=== PATIENT | male | born 1945 | race Caucasian/White ===

== ENCOUNTER 2021-03-24 09:47 | Observation (INO) ==
[2021-03-24] MEDS ORDERED: PROMETHAZINE 25 MG/ML VIAL IV ONE ×2 (09:51→10:48)
[2021-03-24] MEDS ORDERED: LACTATED RINGERS 1,000 ML IV ONE ×2 (09:51→10:50)
--- NOTE | 2021-03-24 09:52 | Emergency Department Note ---
Nausea/Vomiting/Diarrhea HPI General Chief complaint: Nausea/Vomiting/Diarrhea Stated complaint: nausea, vomiting Time Seen by Provider: 03/24/21 09:50 Source: patient Mode of arrival: ambulatory Limitations: no limitations History of Present Illness HPI Narrative: Narrative: Patient is a 76-year-old male who was seen yesterday for lithotripsy and was sent home with pain medications for the ongoing passage of stones. He had been doing okay last night had taken 2 doses of hydrocodone but then starting at 3 AM had persistent nausea and vomiting. He does not so much describe the pain but the persistent nausea. He had not been given anything for nausea control. He does have stated prior intolerance to hydrocodone but had noted more itchy this as opposed to nausea vomiting. He continues to note some discomfort in the right flank area worse with passing of the stones. He has strained his urine and has had multiple small stones that he presents with today. He has noticed some darkness of the vomit but no sagar blood. He has not had any melena no hematochezia. He feels like he is not urinating quite enough with all of the gravelly stone passage. Denies any fever. No burning with urination but does have some urinary urgency as well as blood in the urine. Rates his level of discomfort is moderate primarily can within nausea as opposed to any the pain. Related Data Home Medications Medication Instructions Recorded Confirmed multivitamin 1 tab PO QDAY 02/10/17 03/24/21 Previous Rx's Medication Instructions Recorded tamsulosin 0.4 mg capsule 0.8 mg PO Q24H #180 cap 02/22/21 ondansetron 4 mg PO Q8H PRN #10 tab 03/25/21 pantoprazole [Protonix] 40 mg PO QDAY #30 tab 03/25/21 Allergies Allergy/AdvReac Type Severity Reaction Status Date / Time hydrocodone AdvReac Intermediate Itching Verified 03/24/21 09:50 Review of Systems ROS ROS Narrative: Narrative: A 10 system review of systems was performed and found to be negative except as outlined above. PFSH Narrative Patient History Narrative: Narrative: Medical/Surgical/Family History All Active Problems (Updated 03/25/21 @ 09:27 by Sid Gay MD) Acute upper gastrointestinal bleeding (Acute) Renal colic on right side (Acute) Intractable nausea and vomiting (Acute) BPH w urinary obs/LUTS (Acute) Prostate cancer (Chronic) Elevated PSA (Chronic) Allergic rhinitis (Chronic) Right bundle branch block (Chronic) History of kidney stones (Chronic ~2012) Blood in urine (Chronic) Benign essential hypertension (Chronic) Knee pain, left (Chronic) Gout (Chronic) Hearing loss (Chronic) Hyperlipidemia (Chronic) Benign prostate hyperplasia (Chronic) Medical History (Updated 03/25/21 @ 09:27 by Sid Gay MD) Allergic rhinitis Benign essential hypertension Benign prostate hyperplasia Blood in urine Elevated PSA Gout Hearing loss History of kidney stones (~2012) Hyperlipidemia Knee pain, left Right bundle branch block Surgical History H/O colonoscopy (11/10/15) History of surgery ankle surgery Status post laser lithotripsy of ureteral calculus Family History Brother Kidney stones Sister Kidney stones Grandfather Lung cancer Social History Smoking Status: Former smoker Alcohol Intake Frequency: 0-2 drinks per day Substance Use: does not use Exam Narrative Narrative: Narrative: General: Alert, Nontoxic, holding an emesis bag. Speaking full sentences without dyspnea HEENT: NCAT, PERRL, Oral pharynx with moist mucus membranes. No pharyngeal erythema. No conjunctival pallor Neck: Supple, No lymphadenopathy Chest: Stable Heart: Regular rate and rhythm without murmur Lungs: Clear to auscultation bilaterally Abdomen: Soft, nondistended, nontender : No bladder distention Back: Nontraumatic, right CVA tenderness to palpation. Skin: No rash or lesion Extremity: No cyanosis or edema, pulses 2+ radial Neurologic: Moves all extremities in appropriate coordinated fashion. General Limitations: no limitations Course Vital Signs Vital signs: Vital Signs Temperature 97.3 F 03/24/21 09:48 Pulse Rate 99 H 03/24/21 09:48 Respiratory Rate 16 03/24/21 09:48 Blood Pressure 145/91 03/24/21 09:48 Pulse Oximetry (%) 99 03/24/21 09:48 Temperature 97.4 F 03/25/21 07:22 Pulse Rate 60 03/25/21 07:22 Respiratory Rate 20 03/25/21 07:22 Blood Pressure 92/58 03/25/21 07:22 Pulse Oximetry (%) 91 03/25/21 07:22 MDM MDM Narrative Medical decision making narrative: Narrative: Patient is likely with emesis related to the passage of multiple small kidney stones. Alternatively he could also be having side effects from the hydrocodone that he was taking to address the pain control. We will give further IV fluid hydration as well as Phenergan and Zofran for nausea relief and reevaluate. Patient was treated with multiple doses of Phenergan and Zofran but continued to have retching. He has been complaint of epigastric pain. He was treated with further pain medications for this and ultimately had notation of coffee-ground emesis. Patient has been with prior treatment with ibuprofen with his kidney stone pain and certainly could have caused ulcer. Given his uncontrolled nausea vomiting as well as the patient's advanced age as well as his evidence of upper GI bleed I do not feel that he is appropriate for outpatient discharge. I have consulted hospitalist service as well as gastroenterology and patient will be admitted for further stabilization as well as likely upper endoscopy to determ ine degree of bleeding. Lab Data Result diagrams: 03/25/21 05:25 03/25/21 05:25 Labs: Lab Results 03/24/21 03/24/21 03/24/21 Range/Units 10:06 10:06 10:06 WBC 15.9 H (4.5-11.0) K/mcL RBC 5.17 (4.50-5.90) M/mcL Hgb 16.1 (13.5-16.5) g/dL Hct 47.2 (41.0-55.0) % MCV 91.3 (80.0-100.0) fL MCH 31.1 (26.0-34.0) pg MCHC 34.1 (31.0-36.0) g/dL RDW 12.5 (11.5-14.5) % Plt Count 206 (140-440) K/mcL MPV 10.0 (7.4-10.4) fL Neut % (Auto) 77.1 (38.0-78.0) % Lymph % (Auto) 15.0 (15.0-49.0) % [place] % (Auto) 7.7 (1.0-12.0) % Eos % (Auto) 0.1 (0.0-7.0) % Baso % (Auto) 0.1 (0.0-2.0) % Lymph # (Auto) 2.39 (1.50-4.80) K/mcL [place] # (Auto) 1.22 H (0.10-0.90) K/mcL Eos # (Auto) 0.02 (0.00-0.70) K/mcL Baso # (Auto) 0.01 (0.00-0.20) K/mcL Absolute Neutrophils 12.27 H (1.80-8.00) K/mcL POC PT (11.9-14.5) sec POC INR (0.8-1.2) APTT 27.2 (20.0-37.0) sec Sodium 137 (133-145) mmol/L Potassium 4.3 (3.3-5.1) mmol/L Chloride 102 (96-108) mmol/L Carbon Dioxide 27 (22-30) mmol/L Anion Gap 8.0 (8.0-16.0) BUN 21 (8-23) mg/dL Creatinine 0.8 (0.7-1.2) mg/dL GFR Calculation 88 Glucose 116 H (70-105) mg/dL Calcium 10.3 (8.6-10.4) mg/dL Total Bilirubin 0.3 (0.1-1.0) mg/dL AST 17 (<40) U/L ALT 17 (<40) U/L Alkaline Phosphatase 79 (39-117) U/L Total Protein 7.1 (5.9-8.4) gm/dL Albumin 4.5 (3.2-5.2) gm/dL Globulin 2.6 (2.2-3.7) gm/dL Albumin/Globulin Ratio 1.7 (1.0-2.3) Lipase 48 (7-60) U/L Urine Color Urine Appearance (Clear) Urine pH (5.0-9.0) Ur Specific [place] (1.000-1.035) Urine Protein (Negative) mg/dL Urine Glucose (UA) (Negative) mg/dL Urine Ketones (Negative) mg/dL Urine Occult Blood (Negative) mg/dL Urine Nitrate (Negative) Urine Bilirubin (Negative) mg/dL Urine Urobilinogen mg/dL Ur Leukocyte Esterase (Negative) /ug Urine RBC (0-3) /hpf Urine WBC (0-4) /hpf Ur Squamous Epith Cells (0-4) /hpf Urine Bacteria (0) /hpf Urine Mucus (None) /hpf Ur Culture Indicated? 03/24/21 03/24/21 Range/Units 11:15 14:44 WBC (4.5-11.0) K/mcL RBC (4.50-5.90) M/mcL Hgb (13.5-16.5) g/dL Hct (41.0-55.0) % MCV (80.0-100.0) fL MCH (26.0-34.0) pg MCHC (31.0-36.0) g/dL RDW (11.5-14.5) % Plt Count (140-440) K/mcL MPV (7.4-10.4) fL Neut % (Auto) (38.0-78.0) % Lymph % (Auto) (15.0-49.0) % Sharp % (Auto) (1.0-12.0) % Eos % (Auto) (0.0-7.0) % Baso % (Auto) (0.0-2.0) % Lymph # (Auto) (1.50-4.80) K/mcL [place] # (Auto) (0.10-0.90) K/mcL Eos # (Auto) (0.00-0.70) K/mcL Baso # (Auto) (0.00-0.20) K/mcL Absolute Neutrophils (1.80-8.00) K/mcL POC PT 12.0 (11.9-14.5) sec POC INR 1.0 (0.8-1.2) APTT (20.0-37.0) sec Sodium (133-145) mmol/L Potassium (3.3-5.1) mmol/L Chloride (96-108) mmol/L Carbon Dioxide (22-30) mmol/L Anion Gap (8.0-16.0) BUN (8-23) mg/dL Creatinine (0.7-1.2) mg/dL GFR Calculation Glucose (70-105) mg/dL Calcium (8.6-10.4) mg/dL Total Bilirubin (0.1-1.0) mg/dL AST (<40) U/L ALT (<40) U/L Alkaline Phosphatase (39-117) U/L Total Protein (5.9-8.4) gm/dL Albumin (3.2-5.2) gm/dL Globulin (2.2-3.7) gm/dL Albumin/Globulin Ratio (1.0-2.3) Lipase (7-60) U/L Urine Color Straw Urine Appearance Clear (Clear) Urine pH 7.0 (5.0-9.0) Ur Specific [place] 1.005 (1.000-1.035) Urine Protein Negative (Negative) mg/dL Urine Glucose (UA) Negative (Negative) mg/dL Urine Ketones Negative (Negative) mg/dL Urine Occult Blood >=1.0 A (Negative) mg/dL Urine Nitrate Negative (Negative) Urine Bilirubin Negative (Negative) mg/dL Urine Urobilinogen Negative mg/dL Ur Leukocyte Esterase 25 A (Negative) /ug Urine RBC 7 H (0-3) /hpf Urine WBC 6 H (0-4) /hpf Ur Squamous Epith Cells 0 (0-4) /hpf Urine Bacteria Few A (0) /hpf Urine Mucus Few A (None) /hpf Ur Culture Indicated? Yes ED POC Tests ED POC Tests: [facility] - SARS Antigen Negative Discharge Plan Patient/Caregiver Discharge Instructions Pt seen by COST MANAGER/PA only: No Clinical Impression: Acute upper gastrointestinal bleeding, Renal colic on right side, Intractable nausea and vomiting Activity: increase activity as tolerated Patient Disposition: Xfer As Outpt/Obs ([facility]) Condition: Fair Discharge Date/Time: 03/24/21 15:17 Discharge Location: [facility]
[2021-03-24 10:35] LABS: Basophils # (Auto) 0.01 K/mcL (0.00-0.20); Basophils % (Auto) 0.1 % (0.0-2.0); Eosinophils # (Auto) 0.02 K/mcL (0.00-0.70); Eosinophils % (Auto) 0.1 % (0.0-7.0); Hematocrit 47.2 % (41.0-55.0); Hemoglobin 16.1 g/dL (13.5-16.5); Lymphocytes # (Auto) 2.39 K/mcL (1.50-4.80); Mean Cell Volume 91.3 fL (80.0-100.0); Mean Corpuscular HGB Conc 34.1 g/dL (31.0-36.0); Monocytes # (Auto) 1.22 K/mcL (0.10-0.90); Monocytes % (Auto) 7.7 % (1.0-12.0); Neutrophils % (Auto) 77.1 % (38.0-78.0); Platelet Count 206 K/mcL (140-440); RBC 5.17 M/mcL (4.50-5.90); Red Cell Distribution Width 12.5 % (11.5-14.5); WBC 15.9 K/mcL (4.5-11.0)
[2021-03-24 10:52] LABS: ALT/SGPT 17 U/L (<40); AST/SGOT 17 U/L (<40); Albumin 4.5 gm/dL (3.2-5.2); Albumin/Globulin Ratio 1.7 (1.0-2.3); Alkaline Phosphatase 79 U/L (39-117); Bilirubin,Total 0.3 mg/dL (0.1-1.0); Blood Urea Nitrogen 21 mg/dL (8-23); Calcium 10.3 mg/dL (8.6-10.4); Carbon Dioxide 27 mmol/L (22-30); Chloride 102 mmol/L (96-108); Globulin 2.6 gm/dL (2.2-3.7); Glomerular Filtration Rate 88; Glucose 116 mg/dL (70-105)
[2021-03-24] MEDS: ONDANSETRON 4 MG/2 ML VIAL IV PRN ×2 (10:58→13:05)
[2021-03-24 12:18] LABS: Appearance,Urine CLEAR (Clear); Bacteria,Urine FEW /hpf (0); Bilirubin,Urine Negative (Negative); Color,Urine STRAW; Culture Indicated,Urine Yes; Glucose,Urine (UA) Negative (Negative); Ketones,Urine Negative (Negative); Leukocyte Esterase,Urine 25 /ug (Negative); Mucus,Urine FEW /hpf; Nitrate,Urine Negative (Negative); Protein,Urine Negative (Negative); Specific Gravity,Urine 1.005 (1.000-1.035); Urine Blood >=1.0 mg/dL (Negative); Urine RBC 7 /hpf (0-3); Urine Squamous Epithelial Cell 0 /hpf (0-4); Urine WBC 6 /hpf (0-4); Urobilinogen,Urine Negative
[2021-03-24] MEDS: HYDROmorphone 0.5 MG/0.5 ML SYRINGE IV PRN ×4 (13:06→15:05)
[2021-03-24] MEDS ORDERED: PANTOPRAZOLE 40 MG VIAL IV ONE ×2 (14:25→14:35)
[2021-03-24] MEDS ORDERED: diphenhydrAMINE 50 MG/ML VIAL IV ONE ×2 (14:45→14:56)
--- NOTE | 2021-03-24 14:49 | Internal Med History&Physical ---
HPI History of Present Illness Patient information: Note initiated : 03/24/21 at 2:43 pm Service Date, if different from initiated Date: [] Patient: Isabella Capps a 76 y/o M admitted on for nausea, vomiting. Chief Complaint: [] History of present illness: Mr. Capps is a 76 year old M Patient presents the ED with nausea vomiting and dark emesis. Patient lithotripsy yesterday went home and took a hydrocodone which she does have listed as an allergy but he states it typically just makes him itchy. Started developing nausea vomiting about 3:00am it started turning dark bloody color. Had a lot of nausea and vomiting since. No reported NSAIDs or aspirin. No chest pain or shortness of breath. Does complain of epigastric pain. Denies diarrhea Case was discussed with Dr. Harris who performed EGD later. Review of Systems: Pertinent positives as above. Denies headache/fever/chills/chest pain/cough/dyspnea/diarrhea. Remaining 10 point review of system reviewed negative PFSH PFSH All Active Problems BPH w urinary obs/LUTS (Acute) Prostate cancer (Chronic) Elevated PSA (Chronic) Allergic rhinitis (Chronic) Right bundle branch block (Chronic) History of kidney stones (Chronic ~2012) Blood in urine (Chronic) Benign essential hypertension (Chronic) Knee pain, left (Chronic) Gout (Chronic) Hearing loss (Chronic) Hyperlipidemia (Chronic) Benign prostate hyperplasia (Chronic) Medical History Allergic rhinitis Benign essential hypertension Benign prostate hyperplasia Blood in urine Elevated PSA Gout Hearing loss History of kidney stones (~2012) Hyperlipidemia Knee pain, left Right bundle branch block Surgical History H/O colonoscopy (11/10/15) History of surgery ankle surgery Status post laser lithotripsy of ureteral calculus Family History Brother Kidney stones Sister Kidney stones Grandfather Lung cancer Social History alcohol intake frequency: 0-2 drinks per day substance use type: does not use MEDS/ALLERGIES Home Medications and Allergies Home Medications Medication Instructions Recorded Confirmed Type multivitamin 1 tab PO QDAY 02/10/17 03/24/21 History tamsulosin 0.4 mg capsule 0.8 mg PO Q24H #180 cap 02/22/21 03/24/21 Rx Allergies Allergy/AdvReac Type Severity Reaction Status Date / Time hydrocodone AdvReac Intermediate Itching Verified 03/24/21 09:50 EXAM Constitutional Vitals: Temp Pulse Resp BP Pulse Ox 99.5 F H 93 H 9 L 109/87 93 03/24/21 12:37 03/24/21 14:12 03/24/21 14:12 03/24/21 14:12 03/24/21 14:12 Exam: General: Alert, Awake, mild distress vomiting Eyes/N/T: EOMI, PERRL, Head/Neck: neck supple, normocephalic atraumatic CV: RRR, No murmurs, normal s1/s2 Pulm: Clear b/l, no wheezing/rhonchi/rales Abd: soft, epigastric TTP , +BS x4 Ext: no clubbing/cyanosis/edema Neuro: Alert, no focal deficits, moves all extremities, CN 2-12 grossly intact, symmetrical strength b/l upper/lower, sensations intact b/l upper/lower Skin: warm/dry DATA Data Completed and Pending Labs: Labs from last 24 hours 03/24/21 03/24/21 03/24/21 11:15 10:06 10:06 WBC 15.9 H RBC 5.17 Hgb 16.1 Hct 47.2 MCV 91.3 MCH 31.1 MCHC 34.1 RDW 12.5 Plt Count 206 MPV 10.0 Neut % (Auto) 77.1 Lymph % (Auto) 15.0 [place] % (Auto) 7.7 Eos % (Auto) 0.1 Baso % (Auto) 0.1 Lymph # (Auto) 2.39 [place] # (Auto) 1.22 H Eos # (Auto) 0.02 Baso # (Auto) 0.01 Absolute Neutrophils 12.27 H Sodium 137 Potassium 4.3 Chloride 102 Carbon Dioxide 27 Anion Gap 8.0 BUN 21 Creatinine 0.8 GFR Calculation 88 Glucose 116 H Calcium 10.3 Total Bilirubin 0.3 AST 17 ALT 17 Alkaline Phosphatase 79 Total Protein 7.1 Albumin 4.5 Globulin 2.6 Albumin/Globulin Ratio 1.7 Lipase 48 Urine Color Straw Urine Appearance Clear Urine pH 7.0 Ur Specific [place] 1.005 Urine Protein Negative Urine Glucose (UA) Negative Urine Ketones Negative Urine Occult Blood >=1.0 A Urine Nitrate Negative Urine Bilirubin Negative Urine Urobilinogen Negative Ur Leukocyte Esterase 25 A Urine RBC 7 H Urine WBC 6 H Ur Squamous Epith Cells 0 Urine Bacteria Few A Urine Mucus Few A Ur Culture Indicated? Yes A/P Narrative A/P Narrative: A: *GI bleed, upper: -H&H wnl at this time *h/o nephrolithiasis s/p lithotripsy (03/23) *BPH: * P: -protonix gtt -Dr. Alston for endoscopy -monitor H&H -Antiemetics - -ppx: scd full code Time Spent With Patient Time: Total time spent is greater than 50% in coordination of care (as documented) at patient's floor/unit and/or counseling patient:
[2021-03-24] MEDS ORDERED: KETAMINE 50 MG/ML ML IV PRN (14:52)
[2021-03-24] MEDS ORDERED: PROPOFOL 200 MG/20 ML VIAL IV SCH (15:00)
[2021-03-24] MEDS ORDERED: PANTOPRAZOLE 80 MG in 0.9 % SODIUM CHLORIDE 100 ML IV SCH (15:00)
[2021-03-24] MEDS ORDERED: MIDAZOLAM 2 MG/2 ML VIAL IV SCH (15:00)
[2021-03-24] MEDS ORDERED: ACETAMINOPHEN 650 MG/65 ML BAG IV PRN (16:14)
[2021-03-24] MEDS ORDERED: MAGNESIUM SULFATE 2 GM/50 ML BAG IV PRN (16:14)
[2021-03-24] MEDS ORDERED: ONDANSETRON 4 MG/2 ML VIAL IV PRN (16:14)
[2021-03-24] MEDS ORDERED: SENNOSIDES 1 TABLET PO PRN (16:14)
[2021-03-24] MEDS ORDERED: IPRATROPIUM/ALBUTEROL 3 ML AMPUL.NEB NEB PRN (16:14)
[2021-03-24] MEDS ORDERED: POTASSIUM CHLORIDE 40 MEQ in DEXTROSE 5% IN WATER 500 ML IV PRN (16:14)
[2021-03-24] MEDS ORDERED: diphenhydrAMINE 50 MG/ML VIAL IV PRN (16:14)
[2021-03-24] MEDS ORDERED: TAMSULOSIN 0.4 MG CAPSULE PO SCH (16:14)
[2021-03-24] MEDS ORDERED: METOCLOPRAMIDE 10 MG/2 ML VIAL IV PRN (16:14)
[2021-03-24] MEDS ORDERED: POLYETHYLENE GLYCOL 3350 17 GM PACKET PO PRN (16:14)
[2021-03-24] MEDS ORDERED: POTASSIUM CHLORIDE 20 MEQ TABLET PO PRN ×2 (16:14)
[2021-03-24] MEDS ORDERED: PROCHLORPERAZINE 10 MG/2 ML VIAL IV PRN (16:14)
[2021-03-24] MEDS ORDERED: traMADol 50 MG TABLET PO PRN (16:14)
[2021-03-24 18:57] LABS: Hematocrit 41.7 % (41.0-55.0); Hemoglobin 14.2 g/dL (13.5-16.5)
[2021-03-24] MEDS: 0.9 % SODIUM CHLORIDE 10 ML SYRINGE IV SCH (20:49)
[2021-03-24] MEDS: DOCUSATE SODIUM 100 MG CAPSULE PO SCH (21:04)
[2021-03-25] MEDS: 0.9 % SODIUM CHLORIDE 10 ML SYRINGE IV SCH (05:33)
--- NOTE | 2021-03-25 07:32 | Internal Med Progress Note ---
SUBJECTIVE Subjective Patient information: Note initiated : 03/25/21 at 7:31 am Service Date, if different from initiated Date: [] Patient: Isabella Capps a 76 y/o M admitted on 03/24/21 for nausea, vomiting. Chief Complaint: [] Interval history: History of present illness: Mr. Capps is a 76 year old M Patient presents the ED with nausea vomiting and dark emesis. Patient lithotripsy yesterday went home and took a hydrocodone which she does have listed as an allergy but he states it typically just makes him itchy. Started developing nausea vomiting about 3:00am it started turning dark bloody color. Had a lot of nausea and vomiting since. No reported NSAIDs or aspirin. No chest pain or shortness of breath. Does complain of epigastric pain. Denies diarrhea Case was discussed with Dr. Harris who performed EGD later. 03/25 Slept okay. No further emesis. Little bit of nausea but much better. Review of Systems: denies headache/fever/chills/vomiting/chest or abdominal pain/cough/dyspnea/diarrhea. Otherwise see above. Constitutional Vitals: Vital Signs Temp Pulse Resp BP Pulse Ox 97.4 F 60 20 92/58 91 03/25/21 07:22 03/25/21 07:22 03/25/21 07:22 03/25/21 07:22 03/25/21 07:22 Period Temp Pulse Resp BP Sys/Sherman Pulse Ox Last 24 Hr 97.3 F-99.5 F 60-132 9-27 92-190/48-110 89-99 Intake and Output 03/24/21 03/25/21 03/25/21 21:59 05:59 13:59 Intake Total 545 890 Output Total 375 Balance 170 890 Weight 87.952 kg Intake & Output: Intake & Output 03/24/21 03/25/21 03/25/21 21:59 05:59 13:59 Intake Total 545 890 Output Total 375 Balance 170 890 Weight 87.952 kg Intake: IV 65 100 Protonix 80 mg In Sodium 100 Chloride 0.9% 100 ml @ 8 MG/HR 10 mls/hr IV Q10H [facility] Rx#: [id number] Oral 480 790 Output: Void Amount 375 Other: Meal Dinner Percent of Meal Consumed 100% Feeding Ability Independent Urine Appearance Clear Clear Urine Color Dark Yellow Dark Yellow # Voids 400 Exam: General: Alert, Awake, mild distress vomiting Eyes/N/T: EOMI, Head/Neck: neck supple, CV: RRR, No murmurs, Pulm: Clear b/l, no wheezing/rhonchi/rales Abd: soft, epigastric TTP , +BS x4 Ext: no clubbing/cyanosis/edema Neuro: Alert, no focal deficits, moves all extremities, Skin: warm/dry OBJ DATA Labs CBC & Chem 7: 03/25/21 05:25 03/25/21 05:25 Labs: Abnormal Lab Results 03/24/21 03/24/21 03/24/21 11:15 10:06 10:06 WBC 15.9 H [place] # (Auto) 1.22 H Absolute Neutrophils 12.27 H Glucose 116 H Urine Occult Blood >=1.0 A Ur Leukocyte Esterase 25 A Urine RBC 7 H Urine WBC 6 H Urine Bacteria Few A Urine Mucus Few A Meds: Medications Albuterol/Ipratropium (Ipratropium/Albuterol 3 Ml Ampul.Neb) 3 ml NEB Q4HP PRN PRN Reason: Shortness Of Breath Diphenhydramine HCl (Diphenhydramine 50 Mg/Ml Vial) 25 mg IV Q4-6HP PRN PRN Reason: nausea Docusate Sodium (Docusate Sodium 100 Mg Capsule) 100 mg PO BID [place] Last Admin: 03/24/21 21:04 Dose: Not Given Documented by: Potassium Chloride 40 meq/ (Dextrose) 520 mls @ 130 mls/hr IV UD PRN PRN Reason: Potassium < 3 Magnesium Sulfate (Magnesium Sulfate) 2 gm in 50 mls @ 50 mls/hr IV UD PRN PRN Reason: Magnesium </= 1.6 Acetaminophen (Ofirmev) 650 mg in 65 mls @ 130 mls/hr IV Q6HP PRN; Protocol PRN Reason: PAIN/FEVER > 101 Last Infusion: 03/24/21 21:45 Dose: Infused Documented by: Metoclopramide HCl (Metoclopramide 10 Mg/2 Ml Vial) 10 mg IV Q6HP PRN PRN Reason: Nausea And Vomiting Ondansetron HCl (Ondansetron 4 Mg/2 Ml Vial) 4 mg IV Q4HP PRN PRN Reason: Nausea And Vomiting Last Admin: 03/24/21 21:15 Dose: 4 mg Documented by: Polyethylene Glycol (Polyethylene Glycol 3350 17 Gm Packet) 17 gm PO DAILYP PRN PRN Reason: Constipation Potassium Chloride (Potassium Chloride 20 Meq Tablet) 40 meq PO UD PRN PRN Reason: Potssium is 3-3.5 Potassium Chloride (Potassium Chloride 20 Meq Tablet) 40 meq PO UD PRN PRN Reason: Potassium < 3 Prochlorperazine (Prochlorperazine 10 Mg/2 Ml Vial) 10 mg IV Q6HP PRN PRN Reason: Nausea And Vomiting Senna (Sennosides 1 Tablet) 2 tab PO DAILYP PRN PRN Reason: Constipation Sodium Chloride (0.9 % Sodium Chloride 10 Ml Syringe) 10 ml IV Q8 [place] Last Admin: 03/25/21 05:33 Dose: 10 ml Documented by: Tamsulosin HCl (Tamsulosin 0.4 Mg Capsule) 0.8 mg PO Q24H [facility] Last Admin: 03/24/21 18:17 Dose: 0.8 mg Documented by: Tramadol HCl (Tramadol 50 Mg Tablet) 50 mg PO Q4-6HP PRN; Protocol PRN Reason: Pain Last Admin: 03/24/21 18:42 Dose: 50 mg Documented by: A/P Narrative A/P Narrative: A: *GI bleed, upper: suspect PUD *h/o nephrolithiasis s/p lithotripsy (03/23) *BPH: * P: -protonix gtt -Dr. Alston for endoscopy -monitor H&H -Antiemetics - -ppx: scd full code Time Spent With Patient Time: Total time spent is greater than 50% in coordination of care (as documented) at patient's floor/unit and/or counseling patient: QUALITY VTE Deep Vein Thrombosis/Pulmonary Embolism Present on Admission: No
[2021-03-25 07:48] LABS: Basophils # (Auto) 0.03 K/mcL (0.00-0.20); Basophils % (Auto) 0.2 % (0.0-2.0); Eosinophils # (Auto) 0.12 K/mcL (0.00-0.70); Eosinophils % (Auto) 0.9 % (0.0-7.0); Lymphocytes # (Auto) 3.17 K/mcL (1.50-4.80); Lymphocytes % (Auto) 24.8 % (15.0-49.0); Mean Cell Volume 93.9 fL (80.0-100.0); Mean Corpuscular HGB Conc 32.5 g/dL (31.0-36.0); Mean Platelet Volume 10.4 fL (7.4-10.4); Monocytes # (Auto) 1.13 K/mcL (0.10-0.90); Monocytes % (Auto) 8.9 % (1.0-12.0); Neutrophils % (Auto) 65.2 % (38.0-78.0); Platelet Count 163 K/mcL (140-440); RBC 4.26 M/mcL (4.50-5.90); Red Cell Distribution Width 13.4 % (11.5-14.5); WBC 12.8 K/mcL (4.5-11.0)
[2021-03-25 08:07] LABS: ALT/SGPT 10 U/L (<40); AST/SGOT 12 U/L (<40); Albumin 3.5 gm/dL (3.2-5.2); Albumin/Globulin Ratio 1.8 (1.0-2.3); Alkaline Phosphatase 58 U/L (39-117); Bilirubin,Direct < 0.2 mg/dL (0-0.3); Bilirubin,Total 0.5 mg/dL (0.1-1.0); Blood Urea Nitrogen 24 mg/dL (8-23); Calcium 8.7 mg/dL (8.6-10.4); Carbon Dioxide 26 mmol/L (22-30); Chloride 103 mmol/L (96-108); Glomerular Filtration Rate 74; Glucose 85 mg/dL (70-105); Lactate Dehydrogenase 182 U/L (135-225); Phosphorous 3.3 mg/dL (2.5-4.5); Triglycerides 170 mg/dL (<150); Uric Acid 6.4 mg/dL (2.5-8.0)
[2021-03-25] MEDS: DOCUSATE SODIUM 100 MG CAPSULE PO SCH (08:18)
--- NOTE | 2021-03-25 10:11 | EGD Procedure Note ---
EGD Procedure Notes Procedure Information Patient information: Note initiated : 03/25/21 at 10:09 am Service Date: 03/24/21 Patient: Isabella Capps 76 y/o M admitted on 03/24/21 for nausea, vomiting. Pre-op diagnosis general: Hematemesis. Post-Op Diagnosis general: Severe ulcerative hemorrhagic esophagitis. Procedure: egd Procedure Narrative: The procedure, alternatives and risks were discussed with the patient and the patient's questions were answered. With endoscopist-administered intravenous sedation, the Olympus video endoscope was introduced into the esophagus. The esophagus, stomach, and duodenum were examined sequentially. Severe ulcerative hemorrhagic esophagitis was seen. There was a small hiatal hernia. The gastric mucosa, antrum, pyloric ring and duodenum were otherwise normal. Assessment: Severe ulcerative hemorrhagic esophagitis. Start high dose PPI. No NSAIDs should be used. No cause of abdominal pain seen.
--- NOTE | 2021-03-25 10:24 | Discharge Summary ---
Discharge Provider Provider Patient information: Note initiated : 03/25/21 at 10:21 am Service Date, if different from initiated Date: [] Patient: Isabella Capps a 76 y/o M admitted on 03/24/21 for nausea, vomiting. Chief Complaint: [] Date of admission: 03/24/21 15:55 Discharge date: 03/25/21 Primary care physician: Hardy Marino MD Consults: 03/24/21 Consult to Physician [CONS] Stat Comment: Consulting Provider: Prudencio Avalos Reason For Exam: Physician to Consult Consult to Physician [CONS] Stat Comment: Consulting Provider: Romero Alston Reason For Exam: Physician to Consult Discharge Meds Discharge Medications Home Medications multivitamin 1 tab PO QDAY 02/10/17 [History Confirmed 03/24/21 Last Taken Unknown] tamsulosin 0.4 mg capsule 0.8 mg PO Q24H #180 cap 02/22/21 [Rx Confirmed 03/24/21 Last Taken Unknown] ondansetron 4 mg PO Q8H PRN #10 tab 03/25/21 [Rx Last Taken Unknown] pantoprazole 40 mg PO BID #90 tab 03/25/21 [Rx Last Taken Unknown] COURSE Hospital Course Hospital course: Interval history: History of present illness: Mr. Capps is a 76 year old M Patient presents the ED with nausea vomiting and dark emesis. Patient lithotripsy yesterday went home and took a hydrocodone which she does have listed as an allergy but he states it typically just makes him itchy. Started developing nausea vomiting about 3:00am it started turning dark bloody color. Had a lot of nausea and vomiting since. No reported NSAIDs or aspirin. No chest pain or shortness of breath. Does complain of epigastric pain. Denies diarrhea Case was discussed with Dr. Harris who performed EGD later. 03/25 Slept okay. No further emesis. Little bit of nausea but much better. EGD showing severe ulcerative hemorrhagic esophagitis was seen. There was a small hiatal hernia. The gastric mucosa, antrum, pyloric ring and duodenum were otherwise normal. Discharge diagnosis: Ulcerative esophagitis. Secondary discharge diagnosis: BPH history of nephrolithiasis Time Spent with Patient Time attestation: Total time spent providing and/or coordinating discharge services: Time spent: Greater than 30 minutes EXAM Constitutional Vitals: Temp Pulse Resp BP Pulse Ox 97.4 F 60 20 92/58 91 03/25/21 07:22 03/25/21 07:22 03/25/21 07:22 03/25/21 07:22 03/25/21 07:22 Discharge Data Data Completed and Pending Labs on day of discharge: Labs from last 24 hours 03/25/21 03/25/21 03/24/21 05:25 05:25 18:31 WBC 12.8 H RBC 4.26 L Hgb 13.0 L 14.2 Hct 40.0 L 41.7 MCV 93.9 MCH 30.5 MCHC 32.5 RDW 13.4 Plt Count 163 MPV 10.4 Neut % (Auto) 65.2 Lymph % (Auto) 24.8 [place] % (Auto) 8.9 Eos % (Auto) 0.9 Baso % (Auto) 0.2 Lymph # (Auto) 3.17 [place] # (Auto) 1.13 H Eos # (Auto) 0.12 Baso # (Auto) 0.03 Absolute Neutrophils 8.31 H POC PT POC INR APTT Sodium 138 Potassium 4.2 Chloride 103 Carbon Dioxide 26 Anion Gap 9.0 BUN 24 H Creatinine 1.0 GFR Calculation 74 Glucose 85 Uric Acid 6.4 Calcium 8.7 Phosphorus 3.3 Magnesium 1.8 Total Bilirubin 0.5 Direct Bilirubin < 0.2 GGT 18 AST 12 ALT 10 Alkaline Phosphatase 58 Lactate Dehydrogenase 182 Total Protein 5.5 L Albumin 3.5 Globulin 2.0 L Albumin/Globulin Ratio 1.8 Triglycerides 170 H Lipase Urine Color Urine Appearance Urine pH Ur Specific [place] Urine Protein Urine Glucose (UA) Urine Ketones Urine Occult Blood Urine Nitrate Urine Bilirubin Urine Urobilinogen Ur Leukocyte Esterase Urine RBC Urine WBC Ur Squamous Epith Cells Urine Bacteria Urine Mucus Ur Culture Indicated? 03/24/21 03/24/21 03/24/21 14:44 11:15 10:06 WBC RBC Hgb Hct MCV MCH MCHC RDW Plt Count MPV Neut % (Auto) Lymph % (Auto) [place] % (Auto) Eos % (Auto) Baso % (Auto) Lymph # (Auto) [place] # (Auto) Eos # (Auto) Baso # (Auto) Absolute Neutrophils POC PT 12.0 POC INR 1.0 APTT 27.2 Sodium Potassium Chloride Carbon Dioxide Anion Gap BUN Creatinine GFR Calculation Glucose Uric Acid Calcium Phosphorus Magnesium Total Bilirubin Direct Bilirubin GGT AST ALT Alkaline Phosphatase Lactate Dehydrogenase Total Protein Albumin Globulin Albumin/Globulin Ratio Triglycerides Lipase Urine Color Straw Urine Appearance Clear Urine pH 7.0 Ur Specific [place] 1.005 Urine Protein Negative Urine Glucose (UA) Negative Urine Ketones Negative Urine Occult Blood >=1.0 A Urine Nitrate Negative Urine Bilirubin Negative Urine Urobilinogen Negative Ur Leukocyte Esterase 25 A Urine RBC 7 H Urine WBC 6 H Ur Squamous Epith Cells 0 Urine Bacteria Few A Urine Mucus Few A Ur Culture Indicated? Yes 03/24/21 03/24/21 10:06 10:06 WBC 15.9 H RBC 5.17 Hgb 16.1 Hct 47.2 MCV 91.3 MCH 31.1 MCHC 34.1 RDW 12.5 Plt Count 206 MPV 10.0 Neut % (Auto) 77.1 Lymph % (Auto) 15.0 [place] % (Auto) 7.7 Eos % (Auto) 0.1 Baso % (Auto) 0.1 Lymph # (Auto) 2.39 [place] # (Auto) 1.22 H Eos # (Auto) 0.02 Baso # (Auto) 0.01 Absolute Neutrophils 12.27 H POC PT POC INR APTT Sodium 137 Potassium 4.3 Chloride 102 Carbon Dioxide 27 Anion Gap 8.0 BUN 21 Creatinine 0.8 GFR Calculation 88 Glucose 116 H Uric Acid Calcium 10.3 Phosphorus Magnesium Total Bilirubin 0.3 Direct Bilirubin GGT AST 17 ALT 17 Alkaline Phosphatase 79 Lactate Dehydrogenase Total Protein 7.1 Albumin 4.5 Globulin 2.6 Albumin/Globulin Ratio 1.7 Triglycerides Lipase 48 Urine Color Urine Appearance Urine pH Ur Specific [place] Urine Protein Urine Glucose (UA) Urine Ketones Urine Occult Blood Urine Nitrate Urine Bilirubin Urine Urobilinogen Ur Leukocyte Esterase Urine RBC Urine WBC Ur Squamous Epith Cells Urine Bacteria Urine Mucus Ur Culture Indicated? Discharge Plan Patient/Caregiver Discharge Instructions Activity: increase activity as tolerated Diet: Regular Diet Prescriptions: New ondansetron 4 mg tablet,disintegrating 4 mg PO Q8H PRN (Reason: nausea and vomiting) Qty: 10 RF: 0 pantoprazole 40 mg tablet,delayed release (DR/EC) 40 mg PO BID Qty: 90 RF: 0 Continued tamsulosin [Flomax] 0.4 mg capsule 0.8 mg PO Q24H Qty: 180 RF: 5 multivitamin 1 tab PO QDAY RF: 0 Follow Up Plan Follow up with: Romero Alston MD [Physician] - Hardy Marino MD [Primary Care Provider] - Patient Disposition: Home, Self-Care Prognosis: Fair Overall status at discharge: patient is progressing back to baseline Discharge Orders: Discharge Order (Routine); Ordered 03/25/21 Ordered By: Prudencio Avalos [facility] Deep Vein Thrombosis/Pulmonary Embolism Present on Admission: No
--- NOTE | 2021-03-30 10:50 | EKG ---
[facility] Test Date: 2021-03-24 Pat Name: Isabella Capps Department: MED[facility] Room: 130 Gender: Male Automatic Developer: sb : 1945 Requested By: Sid Gay Order Number: [id number] Reading MD: Salbador Prince M.D. Measurements Intervals [place] Rate: 102 P: 74 MI: 144 QRS: 101 QRSD: 130 T: 26 QT: 352 QTc: 459 Interpretive Statements Sinus tachycardia RBBB and LPFB I reviewed and agree with the above findings. Electronically Signed On 03-25-2021 18:57:43 PDT by Salbador Prince M.D. /[facility] [place]/[email or web address]/[id number]
== END 2021-03-25 13:30 | disposition home or self-care (01) ==
LOC: ED 09:47 → SSSU 15:11 → MEDSUR 15:11 → SSSU 15:17 → MEDSUR 16:39
PROVIDERS: ADMIT Internal Medicine; ATTEND Internal Medicine

== ENCOUNTER 2022-09-17 18:41 | Inpatient (IN) ==
[2022-09-17] MEDS ORDERED: 0.9 % SODIUM CHLORIDE 1,000 ML IV ONE ×2 (19:02→21:17)
[2022-09-17 19:23] LABS: POC Calcium, Ionized 1.18 (1.16-1.32)
[2022-09-17 19:27] LABS: Basophils # (Auto) 0.01 K/mcL (0.00-0.30); Basophils % (Auto) 0.1 % (0.0-2.0); Eosinophils # (Auto) 0 K/mcL (0.00-0.70); Eosinophils % (Auto) 0 % (0.0-7.0); Hemoglobin 14.8 g/dL (13.7-17.5); Lymphocytes # (Auto) 1.41 K/mcL (1.50-4.80); Lymphocytes % (Auto) 17.1 % (15.5-49.0); Mean Cell Volume 89.6 fL (80.0-100.0); Mean Corpuscular HGB Conc 34.4 g/dL (31.0-36.0); Mean Platelet Volume 10.1 fL (8.8-12.5); Monocytes # (Auto) 1.13 K/mcL (0.10-0.90); Monocytes % (Auto) 13.7 % (1.0-12.0); Neutrophils % (Auto) 68.7 % (38.0-78.0); Platelet Count 142 K/mcL (140-440); Red Cell Distribution Width 12.9 % (11.5-14.5); WBC 8.2 K/mcL (4.5-11.0)
--- NOTE | 2022-09-17 19:40 | Emergency Department Note ---
HPI General Chief complaint: Weakness Stated complaint: weak Time Seen by Provider: 09/17/22 18:51 Source: patient and family Mode of arrival: wheelchair Limitations: no limitations History of Present Illness HPI Narrative: Narrative: Patient presents ED with complaints of worsening weakness over the last 24 hours. Patient that he was diagnosed with influenza yesterday at the walk-in clinic. He states since that time he has had diarrhea, felt nauseous and has not been drinking much fluid. He states they became very weak and every time he got up to go to the bathroom and he fell to the floor on his bottom. He denies head trauma, loss of conscious, extremity weakness, extremity numbness, facial droopiness, slurred speech, cardiac chest pain, shortness of breath, heart palpitations, mopped assist, melena, medic easier. Patient denies any other alleviating or aggravating factors. Related Data Home Medications Medication Instructions Recorded Confirmed multivitamin 1 tab PO QDAY 02/10/17 09/16/22 dutasteride 0.5 mg capsule 0.5 mg PO QDAY 05/04/21 09/16/22 pantoprazole 40 mg tablet,delayed 40 mg PO QDAY 02/22/22 09/16/22 release vitamin C 30 mg-zinc citrate 1.1 tab PO 02/22/22 09/16/22 mg-elderberry 25 mg chewable tablet (Sambucus Elderberry) Previous Rx's Medication Instructions Recorded tamsulosin 0.4 mg capsule (Flomax) 0.8 mg PO Q24H #180 caps 02/22/21 albuterol sulfate 90 mcg/actuation 2 puff inhalation Q4-6H PRN 08/27/21 aerosol inhaler (Ventolin HFA) shortness of breath or wheezing #8.5 grams budesonide 90 mcg/actuation breath 2 inh inhalation BID #1 ea 08/27/21 activated powder inhaler (Pulmicort Flexhaler) ezetimibe 10 mg tablet 10 mg PO QDAY #90 tabs 08/27/21 rosuvastatin 10 mg tablet 10 mg PO QHS #90 tabs 08/24/22 oseltamivir 75 mg capsule (Tamiflu) 75 mg PO Q12H 5 days #10 caps 09/16/22 Allergies Allergy/AdvReac Type Severity Reaction Status Date / Time hydrocodone AdvReac Mild Itching Verified 09/17/22 18:45 Review of Systems ROS ROS Narrative: Narrative: All systems ED: reviewed and negative except as stated. PFSH Narrative Patient History Narrative: Narrative: Medical/Surgical/Family History All Active Problems (Updated 09/17/22 @ 22:45 by Jose M Watkins DO) Acute respiratory failure with hypoxia (Acute) Influenza (Acute) Generalized weakness (Acute) COPD (chronic obstructive pulmonary disease) (Acute) Screening for lung cancer (Acute) Screening for abdominal aortic aneurysm (Acute) Tobacco abuse, in remission (Acute) Benign prostate hyperplasia (Chronic) Hyperlipidemia (Chronic) Hearing loss (Chronic) Gout (Chronic) Knee pain, left (Chronic) Benign essential hypertension (Chronic) Blood in urine (Chronic) History of kidney stones (Chronic ~2012) Right bundle branch block (Chronic) Allergic rhinitis (Chronic) Elevated PSA (Chronic) Prostate cancer (Chronic) BPH w urinary obs/LUTS (Chronic) Acute upper gastrointestinal bleeding (Chronic) Left nephrolithiasis (Chronic) Right nephrolithiasis (Chronic) Esophagitis (Chronic) Shortness of breath on exertion (Acute) COVID-19 vaccine series declined (Acute) Retracted ear drum (Acute) Compression fracture of L3 vertebra (Acute) Chronic back pain (Acute) HIV screening declined (Acute) Screening for hepatitis C declined (Acute) 23-polyvalent pneumococcal polysaccharide vaccine declined (Acute) Influenza vaccine refused (Acute) Advanced care planning/counseling discussion (Acute) Medical History 23-polyvalent pneumococcal polysaccharide vaccine declined Advanced care planning/counseling discussion Pt currently desires to be full code until terminal illness or it is futile to maintain life/QOL Allergic rhinitis Benign essential hypertension Benign prostate hyperplasia Blood in urine Chronic back pain Compression fracture of L3 vertebra COPD (chronic obstructive pulmonary disease) COVID-19 vaccine series declined Elevated PSA Esophagitis Gout Hearing loss History of kidney stones (~2012) HIV screening declined Hyperlipidemia Influenza vaccine refused Knee pain, left Medicare annual wellness visit, subsequent Prostate cancer Retracted ear drum Right bundle branch block Screening for abdominal aortic aneurysm Screening for hepatitis C declined Screening for lung cancer Shortness of breath on exertion Tobacco abuse, in remission Surgical History H/O colonoscopy (11/10/15) History of surgery Ankle surgery Status post laser lithotripsy of ureteral calculus (~2020) x2 Family History Brother Kidney stones Sister Kidney stones Other Lung cancer Prostate cancer Social History Smoking Status: Former smoker Alcohol Intake Frequency: a few times a week Substance Use: does not use Exam Narrative Narrative: Narrative: General Limitations: no limitations General appearance: Present alert ENT ENT: Present mucous membranes dry Neck Neck: Present normal inspection; Absent meningismus Respiratory Respiratory: Present normal lung sounds bilaterally; Absent respiratory distress Cardiovascular Cardiovascular: Present regular rate and normal rhythm Adbominal Abdominal: Present soft; Absent tenderness Extremities Extremities: Present normal inspection and normal capillary refill Back Back: Absent L-S tenderness Neurological Neurological: Present oriented X3 and normal gait Psychiatric Psychiatric: Present normal affect and normal mood Skin Skin: Present warm (WNL) and intact Course Course Course Narrative: Patient was evaluated for not feeling well after being diagnosed with influenza. Labs were obtained and showed that he was clinically dehydrated with a BUN of 25. Patient was given some IV fluids. EKG showed that he was in sinus tachycardia. Patient was febrile initially so was given some Toradol and oral Tylenol and his temperature did come down. Lactic acid was within normal limits. Unfortunately patient's oxygen level continued to dip down to around 88%. He required 2 L of oxygen nasal can to maintain greater than 90% O2 saturation. Chest x-ray obtained with image reviewed myself is concerning for pneumonia. Patient given IV Rocephin. Case discussed with hospitalist who has agreed to admit the patient. Plan of care was discussed with patient expressed verbal understanding and agreement. Consultations Consultation #1: Case discussed with hospitalist who has agreed to admit the patient. Time: 22:38 Vital Signs Vital signs: Vital Signs Pulse Rate 120 H 09/17/22 18:42 Respiratory Rate 20 09/17/22 18:42 Blood Pressure 142/84 09/17/22 18:42 Pulse Oximetry (%) 91 09/17/22 18:42 Oxygen Delivery Method 09/17/22 18:42 Temperature 101.3 F H 09/17/22 21:17 Pulse Rate 102 H 09/17/22 22:37 Respiratory Rate 18 09/17/22 22:37 Blood Pressure 113/72 09/17/22 22:31 Pulse Oximetry (%) 98 09/17/22 22:37 Oxygen Delivery Method 09/17/22 22:37 Oxygen Flow Rate (L/min) 2 09/17/22 22:37 MDM MDM Narrative Medical decision making narrative: Narrative: Differential Diagnosis Differential Diagnosis: Dehydration, viral illness, Pneumonia Medical Records Medical records reviewed: Yes I reviewed the patient's medical records. Lab Data Lab results reviewed: Yes I reviewed the patient's lab results. Result diagrams: 09/17/22 19:10 Labs: Lab Results 09/17/22 09/17/22 09/17/22 Range/Units 19:10 19:12 19:18 WBC 8.2 (4.5-11.0) K/mcL RBC 4.80 (4.63-6.08) M/mcL Hgb 14.8 (13.7-17.5) g/dL Hct 43.0 (40.1-51.0) % POC Hct 41.0 (41-55) MCV 89.6 (80.0-100.0) fL MCH 30.8 (26.0-34.0) pg MCHC 34.4 (31.0-36.0) g/dL RDW 12.9 (11.5-14.5) % Plt Count 142 (140-440) K/mcL MPV 10.1 (8.8-12.5) fL Immature Gran % (Auto) 0.4 (0.0-0.5) % Neut % (Auto) 68.7 (38.0-78.0) % Lymph % (Auto) 17.1 (15.5-49.0) % [place] % (Auto) 13.7 H (1.0-12.0) % Eos % (Auto) 0 (0.0-7.0) % Baso % (Auto) 0.1 (0.0-2.0) % Lymph # (Auto) 1.41 L (1.50-4.80) K/mcL [place] # (Auto) 1.13 H (0.10-0.90) K/mcL Eos # (Auto) 0 (0.00-0.70) K/mcL Baso # (Auto) 0.01 (0.00-0.30) K/mcL Immature Gran # 0.03 (0.00-0.05) K/mcl Absolute Neutrophils 5.65 (1.80-8.00) K/mcL POC VBG pH 7.46 H (7.32-7.42) POC VBG pCO2 at Temp 34.5 L (41-51) POC VBG pO2 26 (25-40) POC VBG HCO3 24.7 (24-28) POC VBG Total CO2 26.0 (25-29) POC Venous O2 Sat 53.0 (40-70) POC VBG Base Excess 1.0 (-2-2) VBG Lactic Acid 1.8 (0.5-2) POC Sodium 136 (133-145) POC Potassium 4.0 (3.3-5.1) POC Chloride 102 (96-108) POC Total CO2 24.0 (22-30) POC BUN 25 H (6-20) POC Creatinine 1.0 (0.6-1.2) POC Glucose 146 H (70-105) POC WB Ioniz Calcium 1.18 (1.16-1.32) Radiology Data Radiology results reviewed: Yes I reviewed the patient's radiology results. Radiology results narrative: Chest x-ray obtained with image reviewed myself, concerning for pneumonia. Core Measures AMI Core Measures Followed: Yes Discharge Plan Patient/Caregiver Discharge Instructions Pt seen by EMAIL MARKETING ASSISTANT/PA only: No Clinical Impression: Acute respiratory failure with hypoxia, Influenza, Generalized weakness Patient Disposition: Xfer As Outpt/Obs ([facility]) Condition: Fair Follow up with: Efrain Bonilla MD [Primary Care Provider] - Prescriptions: No Action tamsulosin [Flomax] 0.4 mg capsule 0.8 mg PO Q24H Qty: 180 5RF multivitamin 1 tab PO QDAY oseltamivir [Tamiflu] 75 mg capsule 75 mg PO Q12H 5 Days Qty: 10 0RF ezetimibe 10 mg tablet 10 mg PO QDAY Qty: 90 2RF Pulmicort Flexhaler 90 mcg/actuation aerosol powdr breath activated 2 inh inhalation BID Qty: 1 1RF albuterol sulfate [Ventolin HFA] 90 mcg/actuation HFA aerosol inhaler 2 puff inhalation Q4-6H PRN (Reason: shortness of breath or wheezing) Qty: 8.5 1RF Sambucus Elderberry 30-1.1-25 mg tablet,chewable PO pantoprazole 40 mg tablet,delayed release (DR/EC) 40 mg PO QDAY Breztri Aerosphere 160-9-4.8 mcg/actuation HFA aerosol inhaler 0RF rosuvastatin 10 mg tablet 10 mg PO QHS Qty: 90 1RF dutasteride 0.5 mg Capsule 0.5 mg PO QDAY
[2022-09-17] MEDS ORDERED: ACETAMINOPHEN 325 MG TABLET PO ONE (20:18)
[2022-09-17] MEDS ORDERED: KETOROLAC 30 MG/ML VIAL IV ONE (20:18)
[2022-09-17] MEDS ORDERED: IPRATROPIUM/ALBUTEROL 3 ML AMPUL.NEB NEB ONE (21:37)
[2022-09-17] MEDS ORDERED: cefTRIAXone 2 GM in DEXTROSE 5% IN WATER 50 ML IV ONE (22:40)
[2022-09-17] MEDS ORDERED: ONDANSETRON 4 MG/2 ML VIAL IV PRN (22:45)
[2022-09-18] MEDS: ACETAMINOPHEN 325 MG TABLET PO PRN (03:45)
--- NOTE | 2022-09-18 07:42 | Internal Med History&Physical ---
HPI History of Present Illness Patient information: Note initiated : 09/18/22 at 7:35 am Service Date, if different from initiated Date: [] Patient: Isabella Capps 77 y/o M admitted on 09/17/22 for weak. Chief Complaint: [] History of present illness: Mr. Capps is a 77 year old M Presents ED with increasing weakness and shortness of breath for several days. [facility] and diagnosed with the flu and has been on Tamiflu. He has had diarrhea for several days as well as nausea and poor oral intake. When he went up to go the bathroom he fell to the floor. Did not hit his head or lose consciousness. Look to be dehydrated in the ED and had a tachycardia as well. His oxygen would drop to 88% and was put on 2 L nasal cannula. Chest x-ray was concerning for pneumonia. Patient states he got back from [place] on the eighth and shortly thereafter started feeling crummy. With headaches fever chills productive cough of thick brown sputum diarrhea. He went to [facility] days ago and diagnosed w ith influenza A. Started on Tamiflu. However past couple days he just become so weak. Yesterday got up and got in the shower after that he is just so weak he slipped and fell on to the tub and can barely get himself out. He just feels extremely weak. He does have some chest pain from coughing. And shortness of breath. He was febrile in the ED. CT chest showed bronchitis and mild pneumonia in the lower lobes as well as a small infiltrate right upper lobe. Mild emphysema. Review of Systems: Pertinent positives as above. Denies abdominal pain/. Remaining 10 point review of system reviewed negative PFSH PFSH All Active Problems (Updated 09/17/22 @ 22:45 by Jose M Watkins DO) Acute respiratory failure with hypoxia (Acute) Influenza (Acute) Generalized weakness (Acute) COPD (chronic obstructive pulmonary disease) (Acute) Screening for lung cancer (Acute) Screening for abdominal aortic aneurysm (Acute) Tobacco abuse, in remission (Acute) Benign prostate hyperplasia (Chronic) Hyperlipidemia (Chronic) Hearing loss (Chronic) Gout (Chronic) Knee pain, left (Chronic) Benign essential hypertension (Chronic) Blood in urine (Chronic) History of kidney stones (Chronic ~2012) Right bundle branch block (Chronic) Allergic rhinitis (Chronic) Elevated PSA (Chronic) Prostate cancer (Chronic) BPH w urinary obs/LUTS (Chronic) Acute upper gastrointestinal bleeding (Chronic) Left nephrolithiasis (Chronic) Right nephrolithiasis (Chronic) Esophagitis (Chronic) Shortness of breath on exertion (Acute) COVID-19 vaccine series declined (Acute) Retracted ear drum (Acute) Compression fracture of L3 vertebra (Acute) Chronic back pain (Acute) HIV screening declined (Acute) Screening for hepatitis C declined (Acute) 23-polyvalent pneumococcal polysaccharide vaccine declined (Acute) Influenza vaccine refused (Acute) Advanced care planning/counseling discussion (Acute) Medical History 23-polyvalent pneumococcal polysaccharide vaccine declined Advanced care planning/counseling discussion Pt currently desires to be full code until terminal illness or it is futile to maintain life/QOL Allergic rhinitis Benign essential hypertension Benign prostate hyperplasia Blood in urine Chronic back pain Compression fracture of L3 vertebra COPD (chronic obstructive pulmonary disease) COVID-19 vaccine series declined Elevated PSA Esophagitis Gout Hearing loss History of kidney stones (~2012) HIV screening declined Hyperlipidemia Influenza vaccine refused Knee pain, left Medicare annual wellness visit, subsequent Prostate cancer Retracted ear drum Right bundle branch block Screening for abdominal aortic aneurysm Screening for hepatitis C declined Screening for lung cancer Shortness of breath on exertion Tobacco abuse, in remission Surgical History H/O colonoscopy (11/10/15) History of surgery Ankle surgery Status post laser lithotripsy of ureteral calculus (~2020) x2 Family History Brother Kidney stones Sister Kidney stones Other Lung cancer Prostate cancer Social History marital status: smoking status: Former smoker alcohol intake frequency: a few times a week substance use type: does not use MEDS/ALLERGIES Home Medications and Allergies Home Medications Medication Instructions Recorded Confirmed Type multivitamin 1 tab PO QDAY 02/10/17 09/18/22 History tamsulosin 0.4 mg capsule (Flomax) 0.8 mg PO Q24H #180 caps 02/22/21 09/18/22 Rx dutasteride 0.5 mg capsule 0.5 mg PO QDAY 05/04/21 09/18/22 History albuterol sulfate 90 mcg/actuation 2 puff inhalation Q4-6H PRN 08/27/21 09/18/22 Rx aerosol inhaler (Ventolin HFA) shortness of breath or wheezing #8.5 grams ezetimibe 10 mg tablet 10 mg PO QDAY #90 tabs 08/27/21 09/18/22 Rx vitamin C 30 mg-zinc citrate 1.1 tab PO 02/22/22 09/16/22 History mg-elderberry 25 mg chewable tablet (Sambucus Elderberry) rosuvastatin 10 mg tablet 10 mg PO QHS #90 tabs 08/24/22 09/18/22 Rx oseltamivir 75 mg capsule (Tamiflu) 75 mg PO Q12H 5 days #10 caps 09/16/22 09/18/22 Rx Allergies Allergy/AdvReac Type Severity Reaction Status Date / Time hydrocodone AdvReac Mild Itching Verified 09/17/22 18:45 EXAM Constitutional Vitals: Temp Pulse Resp BP Pulse Ox O2 Del Method O2 Flow Rate 98.8 F 97 H 20 125/79 96 2 09/18/22 03:35 09/18/22 03:35 09/18/22 03:35 09/18/22 03:35 09/18/22 03:35 09/18/22 03:35 09/18/22 03:35 Exam: General: Alert, Awake, No acute Distress Eyes/N/T: EOMI, PERRL, dry MM Head/Neck: neck supple, normocephalic atraumatic CV: RRR, No murmurs, normal s1/s2 Pulm: occasional wheeze, upper airway rhonchi Abd: soft, nontender, +BS x4 Ext: no clubbing/cyanosis/edema Neuro: Alert, no focal deficits, moves all extremities, CN 2-12 grossly intact, Skin: warm/dry DATA Data Completed and Pending Labs: Labs from last 24 hours 09/17/22 09/17/22 09/17/22 19:18 19:12 19:10 WBC RBC Hgb Hct POC Hct 41.0 MCV MCH MCHC RDW Plt Count MPV Immature Gran % (Auto) Neut % (Auto) Lymph % (Auto) [place] % (Auto) Eos % (Auto) Baso % (Auto) Lymph # (Auto) [place] # (Auto) Eos # (Auto) Baso # (Auto) Immature Gran # Absolute Neutrophils POC VBG pH 7.46 H POC VBG pCO2 at Temp 34.5 L POC VBG pO2 26 POC VBG HCO3 24.7 POC VBG Total CO2 26.0 POC Venous O2 Sat 53.0 POC VBG Base Excess 1.0 VBG Lactic Acid 1.8 POC Sodium 136 POC Potassium 4.0 POC Chloride 102 POC Total CO2 24.0 POC BUN 25 H POC Creatinine 1.0 POC Glucose 146 H POC WB Ioniz Calcium 1.18 Mycoplasma pneumon IgM Negative 09/17/22 19:10 WBC 8.2 RBC 4.80 Hgb 14.8 Hct 43.0 POC Hct MCV 89.6 MCH 30.8 MCHC 34.4 RDW 12.9 Plt Count 142 MPV 10.1 Immature Gran % (Auto) 0.4 Neut % (Auto) 68.7 Lymph % (Auto) 17.1 [place] % (Auto) 13.7 H Eos % (Auto) 0 Baso % (Auto) 0.1 Lymph # (Auto) 1.41 L [place] # (Auto) 1.13 H Eos # (Auto) 0 Baso # (Auto) 0.01 Immature Gran # 0.03 Absolute Neutrophils 5.65 POC VBG pH POC VBG pCO2 at Temp POC VBG pO2 POC VBG HCO3 POC VBG Total CO2 POC Venous O2 Sat POC VBG Base Excess VBG Lactic Acid POC Sodium POC Potassium POC Chloride POC Total CO2 POC BUN POC Creatinine POC Glucose POC WB Ioniz Calcium Mycoplasma pneumon IgM A/P Narrative A/P Narrative: A: *Acute hypoxic respiratory failure: -on 1-2L in ED *Pneumonia: secondary bacterial vs viral: -covid neg -bandemia *Influenza A: *Volume depletion: *COPD(not on home O2): *CKD II *HLD: *Diarrhea: P: -Tamiflu -Levaquin, mrsa screen -IVF -O2 supp and wean as able -IS/Acapella, prn nebs -check crp/pct/man diff -rvp pending -CT chest to eval nodule on cxr -imodium -PT/OT -CM for placement needs -ppx: Lovenox Time Spent With Patient Time: Total time spent is greater than 50% in coordination of care (as documented) at patient's floor/unit and/or counseling patient: Total time spent with greater than 50% in coordination of care (as documented) at patient's floor/unit and/or counseling patient:: Greater than 70 minutes QUALITY VTE Deep Vein Thrombosis/Pulmonary Embolism Present on Admission: No
[2022-09-18] MEDS: EZETIMIBE 10 MG TABLET PO SCH (08:36)
[2022-09-18] MEDS: OSELTAMIVIR PHOSPHATE 75 MG CAPSULE PO SCH ×2 (08:36→19:11)
[2022-09-18] MEDS: TAMSULOSIN 0.4 MG CAPSULE PO SCH (08:37)
[2022-09-18] MEDS: DUTASTERIDE 0.5 MG CAPSULE PO SCH (08:37)
--- NOTE | 2022-09-18 09:55 | XRay Report ---
HISTORY: COPD, acute respiratory failure hypoxia, cough FINDINGS: There is a stable 7 mm nodule in the middle third of the left lung. Thin band of scar or discoid atelectasis is present above the left diaphragm. This has developed since prior chest x-ray performed yesterday. Is no evidence of pneumonia or congestive heart failure. The heart size is normal. No adenopathy is detected. IMPRESSION: Thin band of discoid atelectasis developing in the left lower lobe and no evidence of pneumonia or congestive heart failure. Stable nonspecific 7 mm nodule centrally in the left lung Interpreted and Authenticated by: Justus Saucedo 09/18/22
[2022-09-18] MEDS ORDERED: LOPERAMIDE 2 MG CAPSULE PO PRN (10:02)
[2022-09-18] MEDS ORDERED: POTASSIUM CHLORIDE 20 MEQ TABLET PO PRN ×2 (10:03)
[2022-09-18] MEDS ORDERED: ONDANSETRON 4 MG/2 ML VIAL IV PRN (10:03)
[2022-09-18] MEDS ORDERED: POTASSIUM CHLORIDE 40 MEQ in DEXTROSE 5% IN WATER 500 ML IV PRN (10:03)
[2022-09-18] MEDS ORDERED: MAGNESIUM SULFATE 2 GM/50 ML BAG IV PRN (10:03)
[2022-09-18] MEDS ORDERED: LOPERAMIDE 2 MG CAPSULE PO SCH (10:05)
[2022-09-18 10:08] LABS: Band Neutrophils % 33 % (0-10); Lymphocytes % 20 % (15-49); Monocytes % (Manual) 15 % (1-12); Platelet Estimate NORMAL (Normal); RBC Morphology NORMAL (Normal); Segmented Neutrophils % 32 % (38-78)
[2022-09-18] MEDS ORDERED: IOPAMIDOL 100 ML BOTTLE IV ONE (11:08)
--- NOTE | 2022-09-18 11:20 | Cat Scan Report ---
History: Pneumonia, left lung nodule, cough, short of breath TECHNIQUE: Following injection of intravenous nonionic contrast the chest was imaged during the pulmonary arterial phase from above the thoracic inlet through the diaphragms. Sagittal, coronal and axial MIPS images were created. The radiation exposure was limited using dose reduction technology. FINDINGS: Mild emphysema is present in both lungs with several scattered bulla. There is a 2.5 cm groundglass alveolar infiltrate contiguous with the mediastinum, medially in the right upper lobe. There is bronchitis in both lower lobes with a patchy distribution pulmonary infiltrates in the basilar segments of both lower lobes. In the superior segment of the lingula, contiguous with the major fissure there is a well-circumscribed 7 mm densely calcified granuloma. This corresponds with the nodule seen on the preceding x-ray. No suspicious mass is seen in either lung. The heart size is normal. Moderate amount calcified plaque is present in the left anterior descending coronary artery. No pleural or pericardial effusion are present. There are no abnormally enlarged lymph nodes. There is a cyst in the right lobe of the thyroid. IMPRESSION: Bronchitis and mild pneumonia in both lower lobes Small alveolar infiltrate medially in the right upper lobe Mild emphysema Granuloma in the lingula Atherosclerotic coronary artery disease Interpreted and Authenticated by: Justus Saucedo 09/18/22
[2022-09-18 11:28] LABS: ALT/SGPT 37 U/L (<40); AST/SGOT 34 U/L (<40); Albumin 3.3 gm/dL (3.2-5.2); Albumin/Globulin Ratio 1.3 (1.0-2.3); Alkaline Phosphatase 76 U/L (39-117); Bilirubin,Direct 0.2 mg/dL (<0.3); Bilirubin,Total 0.7 mg/dL (0.1-1.0); Blood Urea Nitrogen 16 mg/dL (8-23); Calcium 8.5 mg/dL (8.6-10.4); Carbon Dioxide 24 mmol/L (22-30); Chloride 102 mmol/L (96-108); Globulin 2.6 gm/dL (2.2-3.7); Glomerular Filtration Rate 87; Glucose 94 mg/dL (70-105); Lactate Dehydrogenase 213 U/L (135-225); Phosphorous 1.8 mg/dL (2.5-4.5); Triglycerides 101 mg/dL (<150); Uric Acid 5.2 mg/dL (2.5-8.0)
[2022-09-18] MEDS: ENOXAPARIN 40 MG/0.4 ML SYRINGE SQ SCH (12:05)
[2022-09-18] MEDS: NEUTRA PHOS 1 PACKET PO SCH ×2 (12:05→21:12)
[2022-09-18] MEDS: LEVOFLOXACIN 750 MG/150 ML BAG IV SCH (12:06)
[2022-09-18] MEDS: PHOSPHORUS 250 MG TABLET PO SCH ×2 (12:06→21:12)
[2022-09-18] MEDS: 0.9 % SODIUM CHLORIDE 10 ML SYRINGE IV SCH ×2 (15:51→21:12)
[2022-09-18] MEDS: IPRATROPIUM/ALBUTEROL 3 ML AMPUL.NEB NEB PRN ×2 (19:10→23:25)
[2022-09-18] MEDS: ATORVASTATIN 20 MG TABLET PO SCH (21:12)
[2022-09-19] MEDS: 0.9 % SODIUM CHLORIDE 10 ML SYRINGE IV SCH ×3 (06:04→22:01)
[2022-09-19 07:18] LABS: Hematocrit 40.2 % (40.1-51.0); Hemoglobin 13.6 g/dL (13.7-17.5); Mean Cell Volume 89.7 fL (80.0-100.0); Mean Corpuscular HGB Conc 33.8 g/dL (31.0-36.0); Mean Platelet Volume 10.1 fL (8.8-12.5); Platelet Count 146 K/mcL (140-440); RBC 4.48 M/mcL (4.63-6.08); Red Cell Distribution Width 13.2 % (11.5-14.5); WBC 8.4 K/mcL (4.5-11.0)
--- NOTE | 2022-09-19 07:25 | Internal Med Progress Note ---
SUBJECTIVE Subjective Patient information: Note initiated : 09/19/22 at 7:22 am Service Date, if different from initiated Date: [] Patient: Isabella Capps 77 y/o M admitted on 09/18/22 for weak. Chief Complaint: [] Interval history: History of present illness: Mr. Capps is a 77 year old M Presents ED with increasing weakness and shortness of breath for several days. [facility] and diagnosed with the flu and has been on Tamiflu. He has had diarrhea for several days as well as nausea and poor oral intake. When he went up to go the bathroom he fell to the floor. Did not hit his head or lose consciousness. Look to be dehydrated in the ED and had a tachycardia as well. His oxygen would drop to 88% and was put on 2 L nasal cannula. Chest x-ray was concerning for pneumonia. Patient states he got back from [place] on the eighth and shortly thereafter started feeling crummy. With headaches fever chills productive cough of thick brown sputum diarrhea. He went to [facility] and diagnosed with influenza A. Started on Tamiflu. However past couple days he just become so weak. Yesterday got up and got in the shower after that he is just so weak he slipped and fell on to the tub and can barely get himself out. He just feels extremely weak. He does have some chest pain from coughing. And shortness of breath. He was febrile in the ED. CT chest showed bronchitis and mild pneumonia in the lower lobes as well as a small infiltrate right upper lobe. Mild emphysema. 09/19 Patient had bit of a coughing fit last night and poor sleep but otherwise feels like his cough is improving. Shortness of breath is improving. He is now afebrile. Bandemia improved. Phos better. minimally improved CRP., Diarrhea improved. Review of Systems: denies headache/fever/chills/nausea/vomiting/chest or abdominal pain Otherwise see above. Constitutional Vitals: Vital Signs Temp Pulse Resp BP Pulse Ox O2 Del Method O2 Flow Rate 98.4 F 97 H 22 139/78 92 1 09/19/22 04:01 09/19/22 04:01 09/19/22 04:01 09/19/22 04:01 09/19/22 04:01 09/19/22 04:01 09/18/22 08:00 Period Temp Pulse Resp BP Sys/Sherman Pulse Ox O2 Del Method O2 Flow Rate Last 24 Hr 97.6 F-98.6 F 83-103 - 128-142/67-92 92-98 Nasal Cannula- Room Air 1-1 Intake and Output 09/18/22 09/19/22 09/19/22 19:59 03:59 11:59 Intake Total 550 600 Output Total 300 275 Balance 550 -300 325 Weight 92.164 kg Intake & Output: Intake & Output 09/18/22 09/19/22 09/19/22 19:59 03:59 11:59 Intake Total 550 600 Output Total 300 275 Balance 550 -300 325 Weight 92.164 kg Intake: IV 150 Oral 400 600 Output: Void Amount 300 275 Other: Meal Lunch Percent of Meal Consumed 50% Feeding Ability Independent Urine Appearance Clear Clear Urine Color Yellow Yellow Yellow Stool Consistency Liquid Watery # Voids 1 # Bowel Movements 2 Exam: General: Alert, Awake, No acute Distress Eyes/N/T: EOMI, Head/Neck: neck supple, CV: RRR, No murmurs, Pulm: occasional wheeze, rhonchi Abd: soft, nontender, +BS x4 Ext: no clubbing/cyanosis/edema Neuro: Alert, no focal deficits, moves all extremities, Skin: warm/dry OBJ DATA Labs CBC & Chem 7: 09/19/22 05:43 09/19/22 05:43 Labs: Abnormal Lab Results 09/19/22 09/18/22 09/18/22 05:43 10:30 08:44 RBC 4.48 L [address]gb [address] [place] % (Auto) Lymph # (Auto) [place] # (Auto) Seg Neutrophils % 32 L Band Neutrophils % 33 H Monocytes % (Manual) 15 H POC VBG pH POC VBG pCO2 at Temp POC BUN POC Glucose Calcium 8.5 L Phosphorus 1.8 L C-Reactive Protein Procalcitonin 09/18/22 09/18/22 09/17/22 08:43 08:43 19:[address] [place] % (Auto) Lymph # (Auto) [facility] [place] # (Auto) Seg Neutrophils % Band Neutrophils % Monocytes % (Manual) POC VBG pH 7.46 H POC VBG pCO2 at Temp 34.5 L POC BUN POC Glucose Calcium Phosphorus C-Reactive Protein 14.70 H Procalcitonin 0.20 H 09/17/22 09/17/22 19:12 19:[address] [place] % (Auto) 13.7 H Lymph # (Auto) 1.[address] [facility] [place] # (Auto) 1.13 H Seg Neutrophils % Band Neutrophils % Monocytes % (Manual) POC VBG pH POC VBG pCO2 at Temp POC BUN 25 H POC Glucose 146 H Calcium Phosphorus C-Reactive Protein Procalcitonin Meds: Medications Acetaminophen (Acetaminophen 325 Mg Tablet) 650 mg PO Q6HP PRN; Protocol PRN Reason: Per Pain Protocol/Fever > 101 Last Admin: 09/18/22 03:45 Dose: 650 mg Albuterol/Ipratropium (Ipratropium/Albuterol 3 Ml Ampul.Neb) 3 ml NEB Q4HP PRN PRN Reason: Shortness Of Breath Last Admin: 09/18/22 23:25 Dose: 3 ml Atorvastatin Calcium (Atorvastatin 20 Mg Tablet) 20 mg PO HS [facility] Last Admin: 09/18/22 21:12 Dose: 20 mg Dutasteride (Dutasteride 0.5 Mg Capsule) 0.5 mg PO QDAY [facility] Last Admin: 09/18/22 08:37 Dose: 0.5 mg Ezetimibe (Ezetimibe 10 Mg Tablet) 10 mg PO QDAY [facility] Last Admin: 09/18/22 08:36 Dose: 10 mg Enoxaparin Sodium (Enoxaparin 40 Mg/0.4 Ml Syringe) 40 mg SQ DAILY [facility] Last Admin: 09/18/22 12:05 Dose: 40 mg Potassium Chloride 40 meq/ (Dextrose) 520 mls @ 130 mls/hr IV UD PRN PRN Reason: Potassium < 3 Magnesium Sulfate (Magnesium Sulfate) 2 gm in 50 mls @ 50 mls/hr IV UD PRN PRN Reason: Magnesium </= 1.6 Levofloxacin (Levaquin) 750 mg in 150 mls @ 100 mls/hr IV Q24H [facility]; Protocol Last Infusion: 09/18/22 14:10 Dose: Infused Loperamide HCl (Loperamide 2 Mg Capsule) 2 mg PO PRN PRN PRN Reason: Diarrhea Ondansetron HCl (Ondansetron 4 Mg/2 Ml Vial) 4 mg IV Q4HP PRN PRN Reason: Nausea And Vomiting Oseltamivir Phosphate (Oseltamivir Phosphate 75 Mg Capsule) 75 mg PO Q12H [facility] Last Admin: 09/18/22 19:11 Dose: 75 mg Potassium Chloride (Potassium Chloride 20 Meq Tablet) 40 meq PO UD PRN PRN Reason: Potssium is 3-3.5 Potassium Chloride (Potassium Chloride 20 Meq Tablet) 40 meq PO UD PRN PRN Reason: Potassium < 3 Sodium Chloride (0.9 % Sodium Chloride 10 Ml Syringe) 10 ml IV Q8 [facility] Last Admin: 09/19/22 06:04 Dose: 10 ml Tamsulosin HCl (Tamsulosin 0.4 Mg Capsule) 0.8 mg PO Q24H [facility] Last Admin: 09/18/22 08:37 Dose: 0.8 mg A/P Narrative A/P Narrative: A: *Acute hypoxic respiratory failure: -now on room air *Pneumonia: secondary bacterial vs viral: -covid neg -bandemia improving *Influenza A: *Volume depletion: *COPD(not on home O2): *CKD II *HLD: *Diarrhea: *Hypophosphatemia: P: -Tamiflu -Levaquin, mrsa screen neg -s/p IVF -O2 supp and wean as able -IS/Acapella, prn nebs -check crp/pct -Monitor and replace electrolytes -imodium -PT/OT -CM for placement needs -ppx: Lovenox Time Spent With Patient Time: Total time spent is greater than 50% in coordination of care (as documented) at patient's floor/unit and/or counseling patient: Total time spent with greater than 50% in coordination of care (as documented) at patient's floor/unit and/or counseling patient:: 25 - 35 minutes QUALITY VTE Deep Vein Thrombosis/Pulmonary Embolism Present on Admission: No
[2022-09-19 08:11] LABS: Band Neutrophils % 3 % (0-10); Lymphocytes % 24 % (15-49); Monocytes % (Manual) 9 % (1-12); Platelet Estimate NORMAL (Normal); RBC Morphology NORMAL (Normal); Reactive Lymphocytes 2 % (0-2); Segmented Neutrophils % 62 % (38-78)
[2022-09-19 08:21] LABS: ALT/SGPT 34 U/L (<40); AST/SGOT 29 U/L (<40); Albumin 3.1 gm/dL (3.2-5.2); Albumin/Globulin Ratio 1.1 (1.0-2.3); Alkaline Phosphatase 79 U/L (39-117); Bilirubin,Direct < 0.2 mg/dL (0-0.3); Bilirubin,Total 0.7 mg/dL (0.1-1.0); Blood Urea Nitrogen 15 mg/dL (8-23); Calcium 8.7 mg/dL (8.6-10.4); Carbon Dioxide 21 mmol/L (22-30); Chloride 105 mmol/L (96-108); Globulin 2.7 gm/dL (2.2-3.7); Glomerular Filtration Rate 87; Glucose 96 mg/dL (70-105); Lactate Dehydrogenase 264 U/L (135-225); Phosphorous 3.6 mg/dL (2.5-4.5); Triglycerides 93 mg/dL (<150)
[2022-09-19] MEDS: EZETIMIBE 10 MG TABLET PO SCH (09:05)
[2022-09-19] MEDS: OSELTAMIVIR PHOSPHATE 75 MG CAPSULE PO SCH ×2 (09:05→21:58)
[2022-09-19] MEDS: ENOXAPARIN 40 MG/0.4 ML SYRINGE SQ SCH ×2 (09:05→09:13)
[2022-09-19] MEDS: TAMSULOSIN 0.4 MG CAPSULE PO SCH (09:05)
[2022-09-19] MEDS: LEVOFLOXACIN 750 MG/150 ML BAG IV SCH (09:05)
[2022-09-19] MEDS: DUTASTERIDE 0.5 MG CAPSULE PO SCH (09:05)
[2022-09-19] MEDS: IPRATROPIUM/ALBUTEROL 3 ML AMPUL.NEB NEB PRN (13:43)
[2022-09-19] MEDS: ACETAMINOPHEN 325 MG TABLET PO PRN ×2 (14:10→21:58)
[2022-09-19] MEDS ORDERED: diphenhydrAMINE 25 MG CAPSULE PO PRN (20:03)
[2022-09-19] MEDS: ATORVASTATIN 20 MG TABLET PO SCH (21:58)
[2022-09-19] MEDS: MELATONIN 3 MG TABLET PO SCH (21:58)
[2022-09-20] MEDS: ACETAMINOPHEN 325 MG TABLET PO PRN ×3 (04:15→23:47)
[2022-09-20] MEDS: 0.9 % SODIUM CHLORIDE 10 ML SYRINGE IV SCH ×3 (04:15→21:19)
--- NOTE | 2022-09-20 07:45 | Internal Med Progress Note ---
SUBJECTIVE Subjective Patient information: Note initiated : 09/20/22 at 7:44 am Service Date, if different from initiated Date: [] Patient: Isabella Capps 77 y/o M admitted on 09/18/22 for weak. Chief Complaint: [] Interval history: History of present illness: Mr. Capps is a 77 year old M Presents ED with increasing weakness and shortness of breath for several days. [facility] and diagnosed with the flu and has been on Tamiflu. He has had diarrhea for several days as well as nausea and poor oral intake. When he went up to go the bathroom he fell to the floor. Did not hit his head or lose consciousness. Look to be dehydrated in the ED and had a tachycardia as well. His oxygen would drop to 88% and was put on 2 L nasal cannula. Chest x-ray was concerning for pneumonia. Patient states he got back from [place] on the eighth and shortly thereafter started feeling crummy. With headaches fever chills productive cough of thick brown sputum diarrhea. [facility] and diagnosed with influenza A. Started on Tamiflu. However past couple days he just become so weak. Yesterday got up and got in the shower after that he is just so weak he slipped and fell on to the tub and can barely get himself out. He just feels extremely weak. He does have some chest pain from coughing. And shortness of breath. He was febrile in the ED. CT chest showed bronchitis and mild pneumonia in the lower lobes as well as a small infiltrate right upper lobe. Mild emphysema. 09/19 Patient had bit of a coughing fit last night and poor sleep but otherwise feels like his cough is improving. Shortness of breath is improving. He is now afebrile. Bandemia improved. Phos better. minimally improved CRP., Diarrhea improved. 09/20 Patient has continued cough but he feels like it started to break up. Shortness of breath present but improving. Patient had a much better sleep last night. Review of Systems: denies headache/fever/chills/nausea/vomiting/chest or abdominal pain Otherwise see above. Constitutional Vitals: Vital Signs Temp Pulse Resp BP Pulse Ox O2 Del Method O2 Flow Rate 97.8 F 102 H 22 147/88 93 1 09/20/22 03:36 09/20/22 03:36 09/20/22 03:36 09/20/22 03:36 09/20/22 03:36 09/20/22 03:36 09/18/22 08:00 Period Temp Pulse Resp BP Sys/Sherman Pulse Ox O2 Del Method O2 Flow Rate Last 24 Hr 97.7 F-98.1 F 93-102 16-22 106-155/60-98 93-97 Room Air-Room Air Intake and Output 09/19/22 09/20/22 09/20/22 19:59 03:59 11:59 Intake Total 650 240 Output Total 400 225 Balance 650 -160 -225 Weight 92.079 kg Intake & Output: Intake & Output 09/19/22 09/20/22 09/20/22 19:59 03:59 11:59 Intake Total 650 240 Output Total 400 225 Balance 650 -160 -225 Weight 92.079 kg Intake: IV 150 Oral 500 240 Output: Void Amount 400 225 Other: Urine Appearance Clear Clear Urine Color Dark Yellow Yellow Urine Odor Normal Normal # Voids 2 Exam: General: Alert, Awake, No acute Distress Eyes/N/T: EOMI, Head/Neck: neck supple, CV: RRR, No murmurs, Pulm: mild rhonchi/rales, no wheezing Abd: soft, nontender, +BS x4 Ext: no clubbing/cyanosis/edema Neuro: Alert, no focal deficits, moves all extremities, Skin: warm/dry OBJ DATA Labs CBC & Chem 7: 09/19/22 05:43 09/19/22 05:43 Labs: Abnormal Lab Results 09/19/22 09/19/22 09/19/22 05:43 05:43 05:43 RBC 4.48 L Hgb 13.6 L Robertson % (Auto) Lymph # (Auto) Robertson # (Auto) Seg Neutrophils % Band Neutrophils % Monocytes % (Manual) POC VBG pH POC VBG pCO2 at Temp Carbon Dioxide 21 L POC BUN POC Glucose Calcium Phosphorus Lactate Dehydrogenase 264 H C-Reactive Protein 13.70 H Total Protein 5.8 L Albumin 3.1 L Procalcitonin 0.17 H 09/18/22 09/18/22 09/18/22 10:30 08:44 08:43 RBC Hgb Robertson % (Auto) Lymph # (Auto) Robertson # (Auto) Seg Neutrophils % 32 L Band Neutrophils % 33 H Monocytes % (Manual) 15 H POC VBG pH POC VBG pCO2 at Temp Carbon Dioxide POC BUN POC Glucose Calcium 8.5 L Phosphorus 1.8 L Lactate Dehydrogenase C-Reactive Protein Total Protein Albumin Procalcitonin 0.20 H 09/18/22 09/17/22 09/17/22 08:43 19:18 19:12 RBC Hgb Robertson % (Auto) Lymph # (Auto) Robertson # (Auto) Seg Neutrophils % Band Neutrophils % Monocytes % (Manual) POC VBG pH 7.46 H POC VBG pCO2 at Temp 34.5 L Carbon Dioxide POC BUN 25 H POC Glucose 146 H Calcium Phosphorus Lactate Dehydrogenase C-Reactive Protein 14.70 H Total Protein Albumin Procalcitonin 09/17/22 19:10 RBC Hgb Robertson % (Auto) 13.7 H Lymph # (Auto) 1.41 L Robertson # (Auto) 1.13 H Seg Neutrophils % Band Neutrophils % Monocytes % (Manual) POC VBG pH POC VBG pCO2 at Temp Carbon Dioxide POC BUN POC Glucose Calcium Phosphorus Lactate Dehydrogenase C-Reactive Protein Total Protein Albumin Procalcitonin Meds: Medications Acetaminophen (Acetaminophen 325 Mg Tablet) 650 mg PO Q6HP PRN; Protocol PRN Reason: Per Pain Protocol/Fever > 101 Last Admin: 09/20/22 04:15 Dose: 650 mg Albuterol/Ipratropium (Ipratropium/Albuterol 3 Ml Ampul.Neb) 3 ml NEB Q4HP PRN PRN Reason: Shortness Of Breath Last Admin: 09/19/22 13:43 Dose: 3 ml Atorvastatin Calcium (Atorvastatin 20 Mg Tablet) 20 mg PO HS [facility] Last Admin: 09/19/22 21:58 Dose: 20 mg Diphenhydramine HCl (Diphenhydramine 25 Mg Capsule) 25 mg PO HSP PRN PRN Reason: Insomnia Dutasteride (Dutasteride 0.5 Mg Capsule) 0.5 mg PO QDAY [facility] Last Admin: 09/19/22 09:05 Dose: 0.5 mg Ezetimibe (Ezetimibe 10 Mg Tablet) 10 mg PO QDAY [facility] Last Admin: 09/19/22 09:05 Dose: 10 mg Enoxaparin Sodium (Enoxaparin 40 Mg/0.4 Ml Syringe) 40 mg SQ DAILY [facility] Last Admin: 09/19/22 09:13 Dose: Not Given Potassium Chloride 40 meq/ (Dextrose) 520 mls @ 130 mls/hr IV UD PRN PRN Reason: Potassium < 3 Magnesium Sulfate (Magnesium Sulfate) 2 gm in 50 mls @ 50 mls/hr IV UD PRN PRN Reason: Magnesium </= 1.6 Levofloxacin (Levaquin) 750 mg in 150 mls @ 100 mls/hr IV Q24H [facility]; Protocol Last Infusion: 09/19/22 14:38 Dose: Infused Loperamide HCl (Loperamide 2 Mg Capsule) 2 mg PO PRN PRN PRN Reason: Diarrhea Melatonin (Melatonin 3 Mg Tablet) 3 mg PO HS [facility] Last Admin: 09/19/22 21:58 Dose: 3 mg Ondansetron HCl (Ondansetron 4 Mg/2 Ml Vial) 4 mg IV Q4HP PRN PRN Reason: Nausea And Vomiting Oseltamivir Phosphate (Oseltamivir Phosphate 75 Mg Capsule) 75 mg PO Q12H [facility] Last Admin: 09/19/22 21:58 Dose: 75 mg Potassium Chloride (Potassium Chloride 20 Meq Tablet) 40 meq PO UD PRN PRN Reason: Potssium is 3-3.5 Potassium Chloride (Potassium Chloride 20 Meq Tablet) 40 meq PO UD PRN PRN Reason: Potassium < 3 Sodium Chloride (0.9 % Sodium Chloride 10 Ml Syringe) 10 ml IV Q8 [facility] Last Admin: 09/20/22 04:15 Dose: 10 ml Tamsulosin HCl (Tamsulosin 0.4 Mg Capsule) 0.8 mg PO Q24H [facility] Last Admin: 09/19/22 09:05 Dose: 0.8 mg A/P Narrative A/P Narrative: A: *Acute hypoxic respiratory failure: -now on room air although still symptomatic with exertion *Pneumonia: secondary bacterial vs viral: -covid neg -bandemia improved *Influenza A: *Volume depletion: improved *Generalized weakness/deconditioning: *COPD(not on home O2): *CKD II *HLD: *Diarrhea: *Hypophosphatemia: P: -Tamiflu -Levaquin, mrsa screen neg -O2 supp and wean as able -IS/Acapella, prn nebs -Monitor and replace electrolytes -imodium -PT/OT -CM for placement -ppx: Lovenox Time Spent With Patient Time: Total time spent is greater than 50% in coordination of care (as documented) at patient's floor/unit and/or counseling patient: Total time spent with greater than 50% in coordination of care (as documented) at patient's floor/unit and/or counseling patient:: 25 - 35 minutes QUALITY VTE Deep Vein Thrombosis/Pulmonary Embolism Present on Admission: No
[2022-09-20] MEDS: TAMSULOSIN 0.4 MG CAPSULE PO SCH (10:05)
[2022-09-20] MEDS: ENOXAPARIN 40 MG/0.4 ML SYRINGE SQ SCH (10:06)
[2022-09-20] MEDS: OSELTAMIVIR PHOSPHATE 75 MG CAPSULE PO SCH ×2 (10:06→21:19)
[2022-09-20] MEDS: DUTASTERIDE 0.5 MG CAPSULE PO SCH (10:06)
[2022-09-20] MEDS: EZETIMIBE 10 MG TABLET PO SCH (10:06)
--- NOTE | 2022-09-20 10:07 | Discharge Summary ---
Discharge Provider Provider IMPORTANT FOLLOW-UP INFORMATION FOR PCP: Patient information: Note initiated : 09/20/22 at 10:04 am Service Date, if different from initiated Date: [] Patient: Isabella Capps 77 y/o M admitted on 09/18/22 for weak. Chief Complaint: [] Date of admission: 09/18/22 10:00 Discharge date: 09/21/22 Primary care physician: Efrain Bonilla MD Consults: 09/17/22 Consult to Physician [CONS] Stat Comment: Consulting Provider: Prudencio Avalos Reason For Exam: Physician to Consult COURSE Hospital Course Hospital course: History of present illness: Mr. Capps is a 77 year old M Presents ED with increasing weakness and shortness of breath for several days. He was seen at [facility] several days ago and diagnosed with the flu and has been on Tamiflu. He has had diarrhea for several days as well as nausea and poor oral intake. When he went up to go the bathroom he fell to the floor. Did not hit his head or lose consciousness. Look to be dehydrated in the ED and had a tachycardia as well. His oxygen would drop to 88% and was put on 2 L nasal cannula. Chest x-ray was concerning for pneumonia. Patient states he got back from [place] on the eighth and shortly thereafter started feeling crummy. With headaches fever chills productive cough of thick brown sputum diarrhea. He went to [facility] several days ago and diagnosed with influenza A. Started on Tamiflu. However past couple days he just become so weak. Yesterday got up and got in the shower after that he is just so weak he slipped and fell on to the tub and can barely get himself out. He just feels extremely weak. He does have some chest pain from coughing. And shortness of breath. He was febrile in the ED. CT chest showed bronchitis and mild pneumonia in the lower lobes as well as a small infiltrate right upper lobe. Mild emphysema. 09/19 Patient had bit of a coughing fit last night and poor sleep but otherwise feels like his cough is improving. Shortness of breath is improving. He is now afebrile. Bandemia improved. Phos better. minimally improved CRP., Diarrhea improved. 09/20 Patient has continued cough but he feels like it started to break up. Shortness of breath present but improving. Patient had a much better sleep last night. 09/21 Patient doing well. Feeling better. Vital signs labs stable. Patient stable for discharge A: *Acute hypoxic respiratory failure: *Pneumonia: secondary bacterial vs viral: *Influenza A: *Volume depletion: improved *Generalized weakness/deconditioning: *COPD(not on home O2): *CKD II *HLD: *Diarrhea: *Hypophosphatemia: P: -Tamiflu -Levaquin Discharge diagnosis: Influenza A bacterial pneumonia acute hypoxic respite failure Secondary discharge diagnosis: COPD chronic kidney use hyperlipidemia diarrhea hypophosphatemia Time Spent with Patient Time attestation: Total time spent providing and/or coordinating discharge services: Time spent: Greater than 30 minutes EXAM Constitutional Vitals: Temp Pulse Resp BP Pulse Ox O2 Del Method O2 Flow Rate 98.4 F 79 20 134/78 95 1 09/20/22 08:00 09/20/22 08:00 09/20/22 08:00 09/20/22 08:00 09/20/22 08:00 09/20/22 08:00 09/18/22 08:00 Discharge Data Data Completed and Pending Labs on day of discharge: Preliminary micro results at discharge 09/17/22 23:01 Blood Culture - Preliminary Blood 09/17/22 22:59 Blood Culture - Preliminary Blood 09/18/22 15:51 Gram Stain - Preliminary Sputum source - Expectorated Sputum Culture - Preliminary Discharge Plan Patient/Caregiver Discharge Instructions Activity: increase activity as tolerated Diet: Regular Diet Prescriptions: New levofloxacin 750 mg tablet 750 mg PO Q24H Qty: 3 0RF Continued tamsulosin [Flomax] 0.4 mg capsule 0.8 mg PO Q24H Qty: 180 5RF multivitamin 1 tab PO QDAY ezetimibe 10 mg tablet 10 mg PO QDAY Qty: 90 2RF albuterol sulfate [Ventolin HFA] 90 mcg/actuation HFA aerosol inhaler 2 puff inhalation Q4-6H PRN (Reason: shortness of breath or wheezing) Qty: 8.5 1RF Sambucus Elderberry 30-1.1-25 mg tablet,chewable PO rosuvastatin 10 mg tablet 10 mg PO QHS Qty: 90 1RF dutasteride 0.5 mg Capsule 0.5 mg PO QDAY oseltamivir [Tamiflu] 75 mg capsule 75 mg PO Q12H 5 Days Qty: 4 0RF Follow Up Plan Follow up with: Efrain Bonilla MD [Primary Care Provider] - Patient Disposition: Xfer SNF Prognosis: Fair Rehab Potential: Fair I certify that the patient requires SNF services: Yes Overall status at discharge: patient is progressing back to baseline Discharge Orders: Discharge Order (Routine); Ordered 09/21/22 [facility]/Pulmonary Embolism Present on Admission: No
[2022-09-20] MEDS: LEVOFLOXACIN 750 MG/150 ML BAG IV SCH (10:28)
[2022-09-20] MEDS: MELATONIN 3 MG TABLET PO SCH (21:21)
[2022-09-20] MEDS: ATORVASTATIN 20 MG TABLET PO SCH (21:21)
[2022-09-21] MEDS: 0.9 % SODIUM CHLORIDE 10 ML SYRINGE IV SCH (05:46)
[2022-09-21] MEDS: OSELTAMIVIR PHOSPHATE 75 MG CAPSULE PO SCH (08:23)
[2022-09-21] MEDS: TAMSULOSIN 0.4 MG CAPSULE PO SCH (08:23)
[2022-09-21] MEDS: ENOXAPARIN 40 MG/0.4 ML SYRINGE SQ SCH ×2 (08:24→08:26)
[2022-09-21] MEDS: DUTASTERIDE 0.5 MG CAPSULE PO SCH (08:24)
[2022-09-21] MEDS: EZETIMIBE 10 MG TABLET PO SCH (08:24)
[2022-09-21] MEDS: LEVOFLOXACIN 750 MG/150 ML BAG IV SCH ×2 (10:21→10:28)
== END 2022-09-21 13:24 | DRG 193 ==
LOC: MEDSUR 18:41 → ED 18:41 → MEDSUR 23:35
PROVIDERS: ADMIT Internal Medicine; ATTEND Internal Medicine